=== PATIENT | female | born 1930 | race Caucasian/White ===

== ENCOUNTER 2019-01-14 06:46 | Observation (INO) | payer MEDICARE ==
[~2019-01-14] VITALS: Ht 167.6 cm; Wt 56.2 kg
[2019-01-14] MEDS ORDERED: normal saline 1000ML IV soln IVB ONE (07:15)
[2019-01-14] MEDS ORDERED: LORazepam 2 mg/ml vial IV ONE (07:15)
[2019-01-14 07:45] LABS: BASOPHILS % (AUTO) 0.7 % (0-1); EOSINOPHILS # (AUTO) 0.1 X10'3 (0-0.9); EOSINOPHILS % (AUTO) 0.8 % (0-6); HEMATOCRIT 38.8 % (35.0-45.0); HEMOGLOBIN 13.2 g/dl (12.0-16.0); LYMPHOCYTES # (AUTO) 1.3 X10'3 (1.1-4.8); LYMPHOCYTES % (AUTO) 18.3 % (21-51); MEAN CORPUSCULAR HEMOGLOBIN 29.6 PG (27.0-31.0); MEAN CORPUSCULAR HGB CONC 34.1 g/dL (33.0-36.5); MEAN CORPUSCULAR VOLUME 86.7 FL (78-98); MEAN PLATELET VOLUME 8.7 FL (7.4-10.4); MONOCYTES % (AUTO) 14.3 % (2-12); NEUTROPHILS # (AUTO) 4.8 X10'3 (1.8-7.7); NEUTROPHILS % (AUTO) 65.9 % (42-75); PLATELET COUNT 167 X10'3 (140-440); RED BLOOD COUNT 4.47 X10'6 (4.20-5.60); WHITE BLOOD COUNT 7.2 X10'3 (4.5-11.0)
[2019-01-14 08:07] LABS: ALANINE AMINOTRANSFERASE 16 U/L (12-78); ALBUMIN 2.9 G/DL (3.4-5.0); ALBUMIN/GLOBULIN RATIO 0.6 (1.1-1.5); ALKALINE PHOSPHATASE 78 IU/L (46-116); ANION GAP 5 (8-16); ASPARTATE AMINO TRANSFERASE 19 U/L (10-37); BILIRUBIN,TOTAL 0.6 MG/DL (0.1-1.0); BLOOD UREA NITROGEN 18 MG/DL (7-18); BUN/CREATININE RATIO 25.4 (6.6-38.0); CALCIUM 8.7 MG/DL (8.5-10.1); CHLORIDE 105 MMOL/L (99-107); CREATININE 0.71 MG/DL (0.40-0.90); GLUCOSE 106 MG/DL (70-104); POTASSIUM 3.9 MMOL/L (3.5-5.1); SODIUM 141 MMOL/L (135-145); TOTAL CARBON DIOXIDE 30.9 MMOL/L (24-32); eGFR 78 ML/MIN
[2019-01-14 08:16] LABS: LIPASE 106 U/L (73-393)
--- NOTE | 2019-01-14 08:40 | NUR ---
Volunteer reported to me the pt began experienced increasing chest pain. Assessed pt, who is unable to rate her pain but describes it as pressure and worsening with inspiration. Reported findings to Dr. Mcdermott, repeat ekg being performed at this time.
[2019-01-14 08:48] LABS: CLARITY,URINE SLIGHTLY CLOUDY (Clear); COLOR,URINE YELLOW (Yellow); GLUCOSE, URINE NEGATIVE (Neg); KETONES,URINE NEGATIVE (Neg); LEUKOCYTE ESTERASE ,URINE SMALL (Neg); NITRITES, URINE POSITIVE (Neg); OCCULT BLOOD,URINE MODERATE (Neg); PROTEIN,URINE NEGATIVE (Neg); UROBILINOGEN,URINE 0.2 E.U/dL (0.2-1.0)
[2019-01-14 08:53] LABS: UA COLLECTION TYPE STRAIGHT CATH
[2019-01-14 08:54] LABS: BACTERIA,URINE 4+ /HPF (Neg)
[2019-01-14 08:55] LABS: SQUAMOUS EPITHELIAL CELL,UR FEW /LPF (FEW); WBC CLUMPS,URINE MODERATE /HPF (NEGATIVE)
[2019-01-14 08:56] LABS: RBC,URINE 0-2 /HPF (0-2); WBC,URINE 50-100 /HPF (0-4)
[2019-01-14] MEDS ORDERED: nitroGLYCERIN 0.2mg/hour patch TD ONE (09:10)
[2019-01-14] MEDS ORDERED: aspirin 81mg tab.chew PO ONE (09:10)
[2019-01-14] MEDS ORDERED: morphine 4 MG/ML inj SYRINge IV PRN (09:20)
[2019-01-14] MEDS ORDERED: ondansetron/PF 4mg/2ml inj IV PRN (09:20)
[2019-01-14] MEDS ORDERED: mag hydrox/Alum hydrox/simeth 30ml oral suspension PO PRN (09:20)
[2019-01-14] MEDS ORDERED: magnesium hydroxide 30ml (MOM) UD suspension PO PRN (09:20)
[2019-01-14] MEDS ORDERED: acetaminophen 325mg tablet PO PRN ×2 (09:20→17:55)
[2019-01-14] MEDS ORDERED: OMEP-50 PO (10:39)
[2019-01-14] MEDS ORDERED: METO25TA6 PO (10:39)
[2019-01-14] MEDS ORDERED: VIT1CAPS46 PO (10:40)
[2019-01-14] MEDS ORDERED: LEVO75TA7 PO (10:40)
[2019-01-14] MEDS ORDERED: AMLO5TAB PO (10:40)
[2019-01-14] MEDS ORDERED: SOTA80TA PO (10:40)
[2019-01-14] MEDS ORDERED: APIX5TAB3 PO (10:40)
[2019-01-14] MEDS ORDERED: MIRT7.5T11 PO (10:40)
[2019-01-14] MEDS ORDERED: CLON0.1T20 PO (10:40)
[2019-01-14] MEDS ORDERED: TIOT18CA3 INH (10:40)
[2019-01-14] MEDS ORDERED: ASPI-257 PO (10:40)
[2019-01-14] MEDS ORDERED: LOSA100T57 PO (10:40)
[2019-01-14] MEDS ORDERED: CefTRIAXone/D5W-Rocephin 1gm 50 ML IV ONE (11:00)
[2019-01-14] MEDS: sotalol 80mg tablet PO NR ×2 (11:44→11:51)
--- NOTE | 2019-01-14 11:46 | NUR ---
Patient in room ED 10. I have received report from TEREZA Marin and had the opportunity to ask questions and assume patient care.
[2019-01-14 12:15] VITALS: BP 119/71
[2019-01-14 15:00] VITALS: BP 116/72
--- NOTE | 2019-01-14 17:47 | NUR ---
PAGER ID: [phone] MESSAGE: Patient Angie Liao in room 3017B is requesting a Tylenol for severe headache pain. [facility] Eugenia [id number]
--- NOTE | 2019-01-14 18:25 | NUR ---
Patient in room PCU 3017. I have received report from Eugenia STARKS and had the opportunity to ask questions and assume patient care.
--- NOTE | 2019-01-14 18:36 | NUR ---
Problems reprioritized. Patient report given, questions answered & plan of care reviewed with TEREZA Johnson.
[2019-01-14 19:00] VITALS: BP 128/75
[2019-01-14] MEDS: sotalol 80mg tablet PO SCH (19:07)
[2019-01-14] MEDS: apixaban 5mg tablet PO SCH (19:08)
[2019-01-14] MEDS ORDERED: bumetanide 1mg tablet PO SCH (20:00)
[2019-01-14 23:00] VITALS: BP 106/68
[2019-01-15] VITALS (7 sets, daily range): BP systolic 102–121; BP diastolic 54–72
[2019-01-15 06:02] LABS: BASOPHILS % (AUTO) 0.5 % (0-1); EOSINOPHILS # (AUTO) 0.1 X10'3 (0-0.9); EOSINOPHILS % (AUTO) 1.4 % (0-6); HEMATOCRIT 38.8 % (35.0-45.0); HEMOGLOBIN 12.6 g/dl (12.0-16.0); LYMPHOCYTES # (AUTO) 1.5 X10'3 (1.1-4.8); LYMPHOCYTES % (AUTO) 22.5 % (21-51); MEAN CORPUSCULAR HEMOGLOBIN 28.6 PG (27.0-31.0); MEAN CORPUSCULAR HGB CONC 32.5 g/dL (33.0-36.5); MEAN CORPUSCULAR VOLUME 87.9 FL (78-98); MEAN PLATELET VOLUME 9.3 FL (7.4-10.4); MONOCYTES # (AUTO) 0.8 X10'3 (0-0.9); MONOCYTES % (AUTO) 12.2 % (2-12); NEUTROPHILS # (AUTO) 4.2 X10'3 (1.8-7.7); NEUTROPHILS % (AUTO) 63.4 % (42-75); PLATELET COUNT 161 X10'3 (140-440); RED BLOOD COUNT 4.41 X10'6 (4.20-5.60); RED CELL DISTRIBUTION WIDTH 13.9 % (11.5-14.5); WHITE BLOOD COUNT 6.6 X10'3 (4.5-11.0)
--- NOTE | 2019-01-15 06:10 | NUR ---
Problems reprioritized. Patient report given, questions answered & plan of care reviewed with Tierra STARKS.
[2019-01-15 06:16] LABS: ALBUMIN 2.7 G/DL (3.4-5.0); ANION GAP 7 (8-16); BLOOD UREA NITROGEN 16 MG/DL (7-18); BUN/CREATININE RATIO 26.7 (6.6-38.0); CALCIUM 8.7 MG/DL (8.5-10.1); CHLORIDE 105 MMOL/L (99-107); GLUCOSE 93 MG/DL (70-104); POTASSIUM 3.8 MMOL/L (3.5-5.1); SODIUM 140 MMOL/L (135-145); TOTAL CARBON DIOXIDE 28.5 MMOL/L (24-32); eGFR > 90 ML/MIN
--- NOTE | 2019-01-15 06:30 | NUR ---
Patient in room PCU 3017. I have received report from TEREZA Don and had the opportunity to ask questions and assume patient care.
[2019-01-15] MEDS: sotalol 80mg tablet PO SCH ×2 (07:37→20:58)
[2019-01-15] MEDS: apixaban 5mg tablet PO SCH ×2 (07:37→20:55)
[2019-01-15] MEDS: CefTRIAXone/D5W-Rocephin 1gm 50 ML IV SCH (07:38)
[2019-01-15] MEDS ORDERED: furosemide 20 MG/2 ML vial IV ONE (16:55)
--- NOTE | 2019-01-15 18:05 | NUR ---
Patient in room PCU 3017. I have received report from Tierra STARKS and had the opportunity to ask questions and assume patient care.
[2019-01-15] MEDS ORDERED: iohexol 300mg/ml 100ml inj. ONE (18:13)
--- NOTE | 2019-01-15 18:30 | NUR ---
Patient in room PCU 3017. I have received report from and had the opportunity to ask questions and assume patient care with sarai watts.
--- NOTE | 2019-01-15 18:39 | NUR ---
Problems reprioritized. Patient report given, questions answered & plan of care reviewed with TEREZA Lacey.
[2019-01-16 03:00] VITALS: BP 133/68
[2019-01-16 05:37] LABS: BASOPHILS % (AUTO) 0.3 % (0-1); EOSINOPHILS # (AUTO) 0.1 X10'3 (0-0.9); EOSINOPHILS % (AUTO) 1.6 % (0-6); HEMATOCRIT 37.3 % (35.0-45.0); HEMOGLOBIN 12.4 g/dl (12.0-16.0); LYMPHOCYTES % (AUTO) 18.3 % (21-51); MEAN CORPUSCULAR HEMOGLOBIN 29.1 PG (27.0-31.0); MEAN CORPUSCULAR HGB CONC 33.2 g/dL (33.0-36.5); MEAN CORPUSCULAR VOLUME 87.6 FL (78-98); MONOCYTES # (AUTO) 0.8 X10'3 (0-0.9); MONOCYTES % (AUTO) 15.2 % (2-12); NEUTROPHILS # (AUTO) 3.4 X10'3 (1.8-7.7); NEUTROPHILS % (AUTO) 64.6 % (42-75); PLATELET COUNT 181 X10'3 (140-440); RED BLOOD COUNT 4.26 X10'6 (4.20-5.60); WHITE BLOOD COUNT 5.3 X10'3 (4.5-11.0)
[2019-01-16 05:45] LABS: ALBUMIN 2.7 G/DL (3.4-5.0); ANION GAP 5 (8-16); BLOOD UREA NITROGEN 19 MG/DL (7-18); CALCIUM 8.9 MG/DL (8.5-10.1); CHLORIDE 105 MMOL/L (99-107); CREATININE 0.73 MG/DL (0.40-0.90); GLUCOSE 90 MG/DL (70-104); POTASSIUM 3.9 MMOL/L (3.5-5.1); SODIUM 143 MMOL/L (135-145); TOTAL CARBON DIOXIDE 33.5 MMOL/L (24-32); eGFR 76 ML/MIN
[2019-01-16 06:00] VITALS: BP 127/74
--- NOTE | 2019-01-16 06:00 | NUR ---
Patient in room PCU 3017. I have received report from Toshia STARKS and had the opportunity to ask questions and assume patient care.
--- NOTE | 2019-01-16 06:00 | NUR ---
Patient in room PCU 3017. I have received report from Cintia STARKS and had the opportunity to ask questions and assume patient care.
--- NOTE | 2019-01-16 06:34 | NUR ---
Problems reprioritized. Patient report given, questions answered & plan of care reviewed with Mari STARKS.
--- NOTE | 2019-01-16 06:34 | NUR ---
[place] documentation: I have reviewed and agree with all interventions, assessments performed and documented by Janie STARKS .
--- NOTE | 2019-01-16 06:37 | NUR ---
Problems reprioritized. Patient report given, questions answered & plan of care reviewed with Mari STARKS.
[2019-01-16] MEDS ORDERED: furosemide 20 MG/2 ML vial IV SCH (08:00)
[2019-01-16] MEDS: sotalol 80mg tablet PO SCH (08:26)
[2019-01-16] MEDS: apixaban 5mg tablet PO SCH (08:26)
[2019-01-16] MEDS: CefTRIAXone/D5W-Rocephin 1gm 50 ML IV SCH (08:27)
--- NOTE | 2019-01-16 09:28 | NUR ---
PAGER ID: [phone] MESSAGE: [id number] Mari [id number] Kennedy about patient going back into afib, rate 70/80s. Also inquired about thyroid and acid reflux medication. Pt is c/o visual distortion as well.
[2019-01-16] MEDS ORDERED: levoFLOXACIN-Levaquin 500mg/D5 100 ML IV ONE (10:15)
[2019-01-16] MEDS ORDERED: levoTHYROXINE 75mcg tablet PO SCH (10:15)
[2019-01-16 11:00] VITALS: BP 113/60
[2019-01-16] MEDS ORDERED: LEVO500T2 PO (12:22)
--- NOTE | 2019-01-16 14:24 | NUR ---
PAGER ID: [phone] MESSAGE: [id number] Yanni. Pt's pharmacy called and wanted to notify MD that there is a potential for QT elongation due to an interaction between levaquin and sotalol. pharmacy is holding medication until confirmed. Please advise, Mari [phone]
[2019-01-16 15:00] VITALS: BP 136/69
--- NOTE | 2019-01-16 15:10 | NUR ---
PAGER ID: [phone] MESSAGE: Gorge [id number]. Pt is ready to be discharged , need confirmation about the discharge medication for teodoro. They have med on hold until confirmation, Mari [phone]
--- NOTE | 2019-01-16 16:14 | NUR ---
PAGER ID: [phone] MESSAGE: [id number] Yanni. Pt awaiting discharge, pharmacy will not fill levaquin Rx until confirmed by MD. Guerra [id number] / [phone]
[2019-01-16] MEDS ORDERED: CEFD300C3 PO (16:54)
[2019-01-16] MEDS ORDERED: LINE600T36 PO (16:56)
--- NOTE | 2019-01-16 17:54 | NUR ---
Pt dischargedat 1740 and was wheeled down by staff. Pt education and discharged instructions were reviewed before signing. Belongings were sent with patient, telemetry and PIV were removed. Pt Rx were called in to pharmacy, and she left via private vehicle with family.
[2019-01-16] MEDS ORDERED: lactobacillus rhamnosus 10,000 MMU CELLS/CAPSULE PO SCH (20:00)
[2019-01-16] MEDS ORDERED: mirtazapine 15mg tablet PO SCH (21:00)
[2019-01-17] MEDS ORDERED: pantoprazole 40mg Tablet.DR PO SCH (07:30)
[2019-01-17] MEDS ORDERED: levoFLOXACIN-Levaquin 500mg/D5 100 ML IV SCH (08:00)
== END 2019-01-16 17:45 | disposition home or self-care (01) ==
LOC: ER 06:47 → ED HOLD 09:20 → EDBEDREQ 10:54 → PCU 3S 12:08
PROVIDERS: ADMIT Family Medicine; ATTEND Family Medicine
DX: R07.89 Other chest pain (principal); F41.9 Anxiety disorder, unspecified; N39.0 Urinary tract infection, site not specified; I10 Essential (primary) hypertension; M06.9 Rheumatoid arthritis, unspecified; Z86.79 Personal history of other diseases of the circulatory system; J44.9 Chronic obstructive pulmonary disease, unspecified; Z87.39 Personal history of other diseases of the musculoskeletal system and connective tissue; Z86.59 Personal history of other mental and behavioral disorders; Z87.891 Personal history of nicotine dependence; H35.30 Unspecified macular degeneration; R01.1 Cardiac murmur, unspecified; Z98.890 Other specified postprocedural states; I95.9 Hypotension, unspecified; R00.0 Tachycardia, unspecified; I48.91 Unspecified atrial fibrillation; E03.9 Hypothyroidism, unspecified; E43 Unspecified severe protein-calorie malnutrition
CPT/HCPCS: 36415; 71045; 71260; 80048; 80053; 81001; 83690; 83880; 84443; 84484; 85025; 87070; 87077; 87088; 87186; 93005; 96365; 96366; 96375; 96376; 99284; G0378; J0696; J1940; J1956; J2060; J2270; Q9967

== ENCOUNTER 2019-01-31 05:46 | Day surgery (SDC) | payer MEDICARE ==
[2019-01-30 11:22] LABS: BASOPHILS % (AUTO) 0.3 % (0-1); EOSINOPHILS # (AUTO) 0.1 X10'3 (0-0.9); HEMATOCRIT 39.2 % (35.0-45.0); HEMOGLOBIN 12.7 g/dl (12.0-16.0); LYMPHOCYTES % (AUTO) 16.9 % (21-51); MEAN CORPUSCULAR HEMOGLOBIN 28.4 PG (27.0-31.0); MEAN CORPUSCULAR HGB CONC 32.5 g/dL (33.0-36.5); MEAN CORPUSCULAR VOLUME 87.6 FL (78-98); MEAN PLATELET VOLUME 8.9 FL (7.4-10.4); MONOCYTES % (AUTO) 17.1 % (2-12); NEUTROPHILS # (AUTO) 3.8 X10'3 (1.8-7.7); NEUTROPHILS % (AUTO) 64.7 % (42-75); PLATELET COUNT 136 X10'3 (140-440); RED BLOOD COUNT 4.48 X10'6 (4.20-5.60); RED CELL DISTRIBUTION WIDTH 14.1 % (11.5-14.5); WHITE BLOOD COUNT 5.9 X10'3 (4.5-11.0)
[2019-01-30 11:29] LABS: ALBUMIN 2.8 G/DL (3.4-5.0); ANION GAP 5 (8-16); BLOOD UREA NITROGEN 15 MG/DL (7-18); BUN/CREATININE RATIO 26.3 (6.6-38.0); CALCIUM 8.9 MG/DL (8.5-10.1); CHLORIDE 102 MMOL/L (99-107); CREATININE 0.57 MG/DL (0.40-0.90); GLUCOSE 112 MG/DL (70-104); SODIUM 140 MMOL/L (135-145); TOTAL CARBON DIOXIDE 32.7 MMOL/L (24-32); eGFR > 90 ML/MIN
[2019-01-30 11:30] LABS: PARTIAL THROMBOPLASTIN TIME 35 SECONDS (22-32); PROTHROMBIN TIME 10.5 SECONDS (9.0-12.0)
[2019-01-30 11:46] LABS: ANISOCYTOSIS 1+; LARGE PLATELETS FEW; PLATELET ESTIMATE DECREASED
[~2019-01-31] VITALS: Ht 167.6 cm; Wt 56.2 kg
[2019-01-31] VITALS (16 sets, daily range): BP systolic 123–165; BP diastolic 55–85
[~2019-01-31 05:46] MED LIST: AMLO5TAB PO; APIX5TAB3 PO; ASPI-257 PO; CLON0.1T20 PO; LEVO75TA7 PO; LOSA100T57 PO; MIRT7.5T11 PO; OMEP-50 PO; SOTA80TA PO; TIOT18CA3 INH; VIT1CAPS46 PO
[2019-01-31] MEDS ORDERED: normal saline 1000ml 1,000 ML IV SCH (06:30)
[2019-01-31] MEDS ORDERED: diphenhydrAMINE 25mg capsule PO PRN (06:30)
[2019-01-31] MEDS ORDERED: LORazepam 0.5 MG tablet PO PRN (06:30)
[2019-01-31] MEDS ORDERED: ACET-812 PO (06:49)
[2019-01-31] MEDS ORDERED: METO50TA17 PO (06:49)
[2019-01-31] MEDS ORDERED: midazolam 2 mg/2 ml injection ONE (07:33)
[2019-01-31] MEDS ORDERED: nitroGLYCERIN-Tridil 50MG/D5W 250 ML IV ONE (07:33)
[2019-01-31] MEDS ORDERED: fentaNYL/PF 50MCG/1 ML 2ML syringe ONE (07:33)
[2019-01-31] MEDS ORDERED: LIDOcaine 1% (10mg/ml)w/preservative injection 20ml MDV ONE (07:33)
[2019-01-31] MEDS ORDERED: iohexol 350 MG/ML 50ML vial IV ONE (07:33)
[2019-01-31] MEDS ORDERED: heparin 1,000unit/ml 10ml vial 10 ML ONE (07:33)
[2019-01-31] MEDS ORDERED: iohexol 350MG/ML 100ml bottle IV ONE (07:34)
[2019-01-31] MEDS ORDERED: LIDOcaine/PRILOcaine 5gm cream TP ONE (07:45)
[2019-01-31] MEDS ORDERED: verapamil 2.5 mg/ml inj IV ONE (08:04)
[2019-01-31 10:41] LABS: ISTAT Hct MIX 37 %PCV (35-48); ISTAT O2 SATURATION MIX VENOUS 55 % (60-80); ISTAT SOURCE MIX
[2019-01-31 10:41] LABS: ISTAT HGB ART 12.6 g/dl (12.0-16.0); ISTAT Hct ART 37 %PCV (35-48); ISTAT O2 SATURATION ARTERIAL 87 % (95-98); ISTAT SOURCE ART
== END 2019-01-31 14:46 | disposition home or self-care (01) ==
LOC: SSTAY O 05:46
PROVIDERS: ATTEND Internal Medicine Cardiovascular Disease
DX: I25.10 Atherosclerotic heart disease of native coronary artery without angina pectoris (principal); J44.9 Chronic obstructive pulmonary disease, unspecified; I35.0 Nonrheumatic aortic (valve) stenosis; I48.0 Paroxysmal atrial fibrillation; I10 Essential (primary) hypertension; E78.5 Hyperlipidemia, unspecified; Z87.891 Personal history of nicotine dependence
CPT/HCPCS: 36415; 80048; 82803; 85014; 85025; 85610; 85730; 93005; 93460; 99152; 99153; A6257; J1644; J2001; J2250; J3010; J7030; Q0163; Q9967; A4620; C1769; J3490

== ENCOUNTER 2019-02-16 09:42 | Emergency (ER) | payer MEDICARE ==
[~2019-02-16] VITALS: Ht 167.6 cm; Wt 49.0 kg
[~2019-02-16 09:42] MED LIST changes: +ACET-812 PO; -ASPI-257 PO; +METO50TA17 PO
[2019-02-16 09:48] VITALS: BP 141/60
[2019-02-16] MEDS ORDERED: AZIT-72 PO (10:54)
== END 2019-02-16 11:12 | disposition home or self-care (01) ==
LOC: ER 09:43
DX: J20.9 Acute bronchitis, unspecified (principal); I10 Essential (primary) hypertension; J44.9 Chronic obstructive pulmonary disease, unspecified; M06.9 Rheumatoid arthritis, unspecified; Z90.49 Acquired absence of other specified parts of digestive tract; Z98.890 Other specified postprocedural states; Z99.81 Dependence on supplemental oxygen; Z87.891 Personal history of nicotine dependence; Z88.0 Allergy status to penicillin; Z88.2 Allergy status to sulfonamides; Z88.1 Allergy status to other antibiotic agents; Z88.8 Allergy status to other drugs, medicaments and biological substances; Z79.899 Other long term (current) drug therapy
CPT/HCPCS: 71046; 99283

== ENCOUNTER → 2019-03-09 | Emergency (ER) | payer MEDICARE ==
[~2019-03-09] VITALS: Ht 167.6 cm; Wt 47.9 kg
[~2019-03-09] MED LIST changes: +AZIT-72 PO; +HYDR-3965 PO; +HYDROcodone/acetaminophen 5mg/325mg tablet PO ONE; +ibuprofen tablet 400 MG TABLET PO ONE
[2019-03-09 06:04] VITALS: BP 144/81
== END | disposition home or self-care (01) ==
LOC: ER 05:01
DX: M54.41 Lumbago with sciatica, right side (principal); I10 Essential (primary) hypertension; J44.9 Chronic obstructive pulmonary disease, unspecified; M06.9 Rheumatoid arthritis, unspecified; Z90.49 Acquired absence of other specified parts of digestive tract; Z98.890 Other specified postprocedural states; Z88.0 Allergy status to penicillin; Z88.2 Allergy status to sulfonamides; Z88.1 Allergy status to other antibiotic agents; Z88.8 Allergy status to other drugs, medicaments and biological substances; Z79.899 Other long term (current) drug therapy
CPT/HCPCS: 99283

== ENCOUNTER 2019-03-20 23:33 | Emergency (ER) | payer MEDICARE ==
[~2019-03-20] VITALS: Ht 165.1 cm; Wt 55.9 kg
[~2019-03-20 23:33] MED LIST changes: -AZIT-72 PO; -HYDROcodone/acetaminophen 5mg/325mg tablet PO ONE; -ibuprofen tablet 400 MG TABLET PO ONE
[2019-03-20 23:53] LABS: BASOPHILS # (AUTO) 0.1 X10'3 (0-0.2); BASOPHILS % (AUTO) 1.5 % (0-1); EOSINOPHILS # (AUTO) 0.1 X10'3 (0-0.9); EOSINOPHILS % (AUTO) 0.7 % (0-6); HEMATOCRIT 41.3 % (35.0-45.0); HEMOGLOBIN 13.6 g/dl (12.0-16.0); LYMPHOCYTES # (AUTO) 1.3 X10'3 (1.1-4.8); LYMPHOCYTES % (AUTO) 14.9 % (21-51); MEAN CORPUSCULAR HGB CONC 32.9 g/dL (33.0-36.5); MEAN CORPUSCULAR VOLUME 88.1 FL (78-98); MEAN PLATELET VOLUME 9.3 FL (7.4-10.4); MONOCYTES # (AUTO) 0.9 X10'3 (0-0.9); MONOCYTES % (AUTO) 10.7 % (2-12); NEUTROPHILS # (AUTO) 6.1 X10'3 (1.8-7.7); NEUTROPHILS % (AUTO) 72.2 % (42-75); PLATELET COUNT 150 X10'3 (140-440); RED BLOOD COUNT 4.69 X10'6 (4.20-5.60); RED CELL DISTRIBUTION WIDTH 14.5 % (11.5-14.5); WHITE BLOOD COUNT 8.4 X10'3 (4.5-11.0)
[2019-03-21 00:06] LABS: ALANINE AMINOTRANSFERASE 23 U/L (12-78); ALBUMIN/GLOBULIN RATIO 0.5 (1.1-1.5); ALKALINE PHOSPHATASE 94 IU/L (46-116); ANION GAP 3 (8-16); ASPARTATE AMINO TRANSFERASE 27 U/L (10-37); BILIRUBIN,TOTAL 0.7 MG/DL (0.1-1.0); BLOOD UREA NITROGEN 19 MG/DL (7-18); BUN/CREATININE RATIO 27.1 (6.6-38.0); CHLORIDE 101 MMOL/L (99-107); GLUCOSE 119 MG/DL (70-104); INR 1.1 INR; PARTIAL THROMBOPLASTIN TIME 37 SECONDS (22-32); POTASSIUM 4.2 MMOL/L (3.5-5.1); SODIUM 136 MMOL/L (135-145); TOTAL CARBON DIOXIDE 31.7 MMOL/L (24-32); TOTAL PROTEIN 8.6 G/DL (6.4-8.2); eGFR 79 ML/MIN
--- NOTE | 2019-03-21 00:14 | NUR ---
MD MADE AWARE THAT TYPE AND SCREEN NOT NEEDED R/T PT TRANSFERRING TO [facility], SO CANCELLED.
[2019-03-21] MEDS ORDERED: FLUT1BLS3 (00:24)
[2019-03-21] MEDS ORDERED: ALBU8.5H8 INH (00:25)
[2019-03-21 00:30] LABS: CLARITY,URINE CLEAR (Clear); COLOR,URINE YELLOW (Yellow); GLUCOSE, URINE NEGATIVE (Neg); KETONES,URINE NEGATIVE (Neg); LEUKOCYTE ESTERASE ,URINE NEGATIVE (Neg); NITRITES, URINE NEGATIVE (Neg); OCCULT BLOOD,URINE SMALL (Neg); PROTEIN,URINE 30 mg/dl (Neg); UROBILINOGEN,URINE 0.2 E.U/dL (0.2-1.0)
[2019-03-21 00:33] LABS: UA COLLECTION TYPE FOLEY CATH
[2019-03-21 00:35] LABS: BACTERIA,URINE FEW /HPF (Neg); MUCUS STRANDS NONE SEEN /LPF (Neg); SQUAMOUS EPITHELIAL CELL,UR FEW /LPF (FEW); WBC,URINE 0-4 /HPF (0-4)
[2019-03-21 00:57] VITALS: BP 162/73
[2019-03-21] MEDS ORDERED: fentaNYL/PF 50MCG/1 ML 2ML syringe IV STA (01:22)
--- NOTE | 2019-03-21 02:39 | NUR ---
SBAR TO EMS
== END 2019-03-21 02:00 | disposition short-term general hospital (02) ==
LOC: ER 23:34
DX: S72.091A Other fracture of head and neck of right femur, initial encounter for closed fracture (principal); I48.91 Unspecified atrial fibrillation; J44.9 Chronic obstructive pulmonary disease, unspecified; I35.0 Nonrheumatic aortic (valve) stenosis; I10 Essential (primary) hypertension; M06.9 Rheumatoid arthritis, unspecified; Z90.49 Acquired absence of other specified parts of digestive tract; Z87.891 Personal history of nicotine dependence; Z88.0 Allergy status to penicillin; Z99.81 Dependence on supplemental oxygen; Z88.2 Allergy status to sulfonamides; Z79.01 Long term (current) use of anticoagulants; Z88.1 Allergy status to other antibiotic agents; Z79.899 Other long term (current) drug therapy; W18.49XA Other slipping, tripping and stumbling without falling, initial encounter; Y93.89 Activity, other specified; Y92.89 Other specified places as the place of occurrence of the external cause; Y99.9 Unspecified external cause status
CPT/HCPCS: 36415; 51702; 71045; 73502; 80053; 81001; 85025; 85610; 85730; 93005; 96374; 99285; J3010

== ENCOUNTER 2019-06-07 09:00 | Emergency (ER) | payer MEDICARE ==
[~2019-06-07] VITALS: Ht 167.6 cm; Wt 52.7 kg
[~2019-06-07 09:00] MED LIST changes: +ALBU8.5H8 INH; +FLUT1BLS3; -HYDR-3965 PO; +LIDOcaine 1% w/EPI 1:100,000 30ml vial (MDV) ONE; -METO50TA17 PO
[2019-06-07 09:05] VITALS: BP 136/59
[2019-06-07] MEDS ORDERED: ketorolac trometh inj. 60 MG/2 ML VIAL IM ONE (09:40)
[2019-06-07] MEDS ORDERED: traMADol 50MG tablet PO ONE (09:40)
[2019-06-07] MEDS ORDERED: acetaminophen 325mg tablet PO ONE (09:40)
[2019-06-07] MEDS ORDERED: TRAM50TA2 PO (10:00)
[2019-06-07] MEDS ORDERED: LIDO700A32 TP (10:00)
[2019-06-07] MEDS ORDERED: ACET-2615 PO (10:00)
--- NOTE | 2019-06-07 10:17 | NUR ---
Pt ambulates to the bathroom with walker and daughter to assist. Pt now back in room waiting for dc paperwork.
== END 2019-06-07 10:21 | disposition home or self-care (01) ==
LOC: ER 09:01
DX: M54.5 Low back pain (principal); I35.0 Nonrheumatic aortic (valve) stenosis; I48.91 Unspecified atrial fibrillation; I10 Essential (primary) hypertension; J44.9 Chronic obstructive pulmonary disease, unspecified; M06.9 Rheumatoid arthritis, unspecified; F41.9 Anxiety disorder, unspecified; Z90.49 Acquired absence of other specified parts of digestive tract; Z98.890 Other specified postprocedural states; Z88.0 Allergy status to penicillin; Z88.2 Allergy status to sulfonamides; Z88.1 Allergy status to other antibiotic agents; Z88.8 Allergy status to other drugs, medicaments and biological substances; Z79.899 Other long term (current) drug therapy
CPT/HCPCS: 20552; 96372; 99284; J1885

== ENCOUNTER 2019-08-13 09:40 | Inpatient (IN) | payer MEDICARE ==
[~2019-08-13] VITALS: Ht 165.1 cm; Wt 58.2 kg
[2019-08-13] VITALS (9 sets, daily range): BP systolic 72–132; BP diastolic 49–65
[~2019-08-13 09:40] MED LIST changes: +LIDO700A32 TP; -LIDOcaine 1% w/EPI 1:100,000 30ml vial (MDV) ONE; +heparin, porcine-25,000 units/D5-250ml premix IV ONE; +nitroGLYCERIN 0.4mg SUBLingual tab SL ONE
[2019-08-13] MEDS ORDERED: morphine 4 MG/ML inj SYRINge IV ONE (09:50)
[2019-08-13] MEDS ORDERED: nitroGLYCERIN 0.4mg SUBLingual tab SL PRN (09:50)
[2019-08-13] MEDS ORDERED: ondansetron/PF 4mg/2ml inj IV ONE (09:50)
[2019-08-13] MEDS ORDERED: iohexol 350 MG/1 ML 200ml bottle ONE (09:56)
[2019-08-13] MEDS ORDERED: iohexol 350 MG/ML 50ML vial IV ONE ×2 (09:56→12:42)
[2019-08-13] MEDS ORDERED: LIDOcaine 1% (10mg/ml)w/preservative injection 20ml MDV ONE ×2 (09:56→12:42)
--- NOTE | 2019-08-13 10:05 | NUR ---
DR HEREDIA AT BEDSIDE NOW FOR EVALAUTION NOW
[2019-08-13 10:08] LABS: BASOPHILS # (AUTO) 0.1 X10'3 (0-0.2); BASOPHILS % (AUTO) 0.8 % (0-1); EOSINOPHILS % (AUTO) 0.4 % (0-6); HEMATOCRIT 38.4 % (35.0-45.0); HEMOGLOBIN 12.7 g/dl (12.0-16.0); LYMPHOCYTES # (AUTO) 0.9 X10'3 (1.1-4.8); MEAN CORPUSCULAR HGB CONC 32.9 g/dL (33.0-36.5); MEAN PLATELET VOLUME 8.6 FL (7.4-10.4); MONOCYTES # (AUTO) 1.1 X10'3 (0-0.9); NEUTROPHILS # (AUTO) 7.9 X10'3 (1.8-7.7); NEUTROPHILS % (AUTO) 78.8 % (42-75); PLATELET COUNT 223 X10'3 (140-440); RED BLOOD COUNT 4.52 X10'6 (4.20-5.60); RED CELL DISTRIBUTION WIDTH 18.4 % (11.5-14.5); WHITE BLOOD COUNT 10.1 X10'3 (4.5-11.0)
[2019-08-13] MEDS ORDERED: enoxaparin 50mg/0.5ml (from 3ml vial) syringe SUBCUT ONE (10:10)
[2019-08-13 10:26] LABS: ALANINE AMINOTRANSFERASE 18 U/L (12-78); ALBUMIN 2.5 G/DL (3.4-5.0); ALBUMIN/GLOBULIN RATIO 0.4 (1.1-1.5); ALKALINE PHOSPHATASE 92 IU/L (46-116); ANION GAP 4 (8-16); ASPARTATE AMINO TRANSFERASE 17 U/L (10-37); BILIRUBIN,TOTAL 0.8 MG/DL (0.1-1.0); BLOOD UREA NITROGEN 19 MG/DL (7-18); CALCIUM 8.4 MG/DL (8.5-10.1); CHLORIDE 104 MMOL/L (99-107); CREATININE 0.76 MG/DL (0.40-0.90); GLUCOSE 135 MG/DL (70-104); SODIUM 139 MMOL/L (135-145); TOTAL CARBON DIOXIDE 31.1 MMOL/L (24-32); TOTAL PROTEIN 8.2 G/DL (6.4-8.2); eGFR 72 ML/MIN
[2019-08-13 10:35] LABS: MAGNESIUM 1.7 MG/DL (1.5-2.4)
[2019-08-13] MEDS ORDERED: acetaminophen 325mg tablet PO PRN ×2 (11:00)
[2019-08-13] MEDS ORDERED: potassium Cl 20 mEq SR tablet PO PRN ×2 (11:00)
[2019-08-13] MEDS ORDERED: magnesium hydroxide 30ml (MOM) UD suspension PO PRN (11:00)
[2019-08-13] MEDS ORDERED: mag hydrox/Alum hydrox/simeth 30ml oral suspension PO PRN (11:00)
[2019-08-13] MEDS: aspirin 81mg tablet.DR PO SCH (11:00)
[2019-08-13] MEDS ORDERED: magnesium 2GM in 50ml NS 50 ML IV PRN (11:00)
[2019-08-13] MEDS ORDERED: magnesium 4gm in 100ml NS 100 ML IV PRN (11:00)
[2019-08-13] MEDS ORDERED: potassium CL 10mEq/100ml bag 100 ML IV PRN ×2 (11:00)
[2019-08-13] MEDS ORDERED: magnesium Cl slow-release 64mg tablet PO PRN (11:00)
[2019-08-13] MEDS ORDERED: ondansetron/PF 4mg/2ml inj IV PRN (11:00)
--- NOTE | 2019-08-13 12:00 | NUR ---
received report from mac Marin
[2019-08-13 12:41] LABS: PARTIAL THROMBOPLASTIN TIME 34 SECONDS (22-32)
[2019-08-13] MEDS ORDERED: iohexol 350MG/ML 100ml bottle IV ONE (12:42)
--- NOTE | 2019-08-13 13:09 | NUR ---
PT ARRIVED ON FLOOR AT THIS TIME
[2019-08-13] MEDS: nitroGLYCERIN 0.4mg SUBLingual tab SL PRN ×2 (13:35→14:20)
[2019-08-13] MEDS: furosemide 40mg/4ml inj IV SCH ×2 (13:39→20:00)
[2019-08-13] MEDS ORDERED: GABA-530 PO (13:59)
[2019-08-13] MEDS ORDERED: VIT1CAPS46 PO (14:36)
[2019-08-13] MEDS ORDERED: TETR-47 OP (14:38)
[2019-08-13 15:57] LABS: PHOSPHORUS 4.4 MG/DL (2.3-4.5)
[2019-08-13 16:01] LABS: CLARITY,URINE SLIGHTLY CLOUDY (Clear); COLOR,URINE YELLOW (Yellow); GLUCOSE, URINE NEGATIVE (Neg); KETONES,URINE NEGATIVE (Neg); LEUKOCYTE ESTERASE ,URINE NEGATIVE (Neg); NITRITES, URINE NEGATIVE (Neg); OCCULT BLOOD,URINE SMALL (Neg); PROTEIN,URINE NEGATIVE (Neg); UROBILINOGEN,URINE 0.2 E.U/dL (0.2-1.0)
[2019-08-13 16:05] LABS: UA COLLECTION TYPE STRAIGHT CATH
[2019-08-13 16:08] LABS: AMORPHOUS PHOSPHATES 1+; SQUAMOUS EPITHELIAL CELL,UR MANY /LPF (FEW)
[2019-08-13 16:09] LABS: BACTERIA,URINE 2+ /HPF (Neg); WBC,URINE 0-4 /HPF (0-4)
[2019-08-13] MEDS ORDERED: ipratropium/albuterol 3ml nebule NEB PRN (16:30)
[2019-08-13] MEDS ORDERED: methylPREDNISolone sod succ 125mg/2ml vial IV ONE (16:30)
[2019-08-13] MEDS ORDERED: diltiazem-NS 100mg/100ml 100 ML IV SCH (16:45)
[2019-08-13] MEDS ORDERED: tetrahydrozoline 0.05% 15ml ophthalmic drops EACHEYE PRN (17:40)
[2019-08-13] MEDS: CefTRIAXone/D5W-Rocephin 1gm 50 ML IV SCH (18:08)
--- NOTE | 2019-08-13 18:43 | NUR ---
Patient in room PCU 3016. I have received report from TEREZA Hernadez and had the opportunity to ask questions and assume patient care.
--- NOTE | 2019-08-13 18:43 | NUR ---
gave report to mac weber
[2019-08-13] MEDS: ipratropium/albuterol 3ml nebule NEB SCH ×2 (19:57→23:00)
[2019-08-13] MEDS ORDERED: enoxaparin 50mg/0.5ml (from 3ml vial) syringe SUBCUT SCH (20:00)
[2019-08-13] MEDS ORDERED: temazepam 15mg capsule PO PRN (21:00)
[2019-08-13] MEDS: lactobacillus rhamnosus 10,000 MMU CELLS/CAPSULE PO SCH (21:23)
[2019-08-13] MEDS: sotalol 80mg tablet PO SCH (21:23)
[2019-08-13] MEDS: apixaban 2.5mg tablet PO SCH (21:23)
[2019-08-13] MEDS: mirtazapine 15mg tablet PO SCH (21:24)
[2019-08-13] MEDS: methylPREDNISolone sod succ 125mg/2ml vial IV SCH (21:25)
[2019-08-14] VITALS (10 sets, daily range): BP systolic 97–128; BP diastolic 57–83
--- NOTE | 2019-08-14 01:11 | NUR ---
dairy technician Yasemin has brought to my attention some what appears to be ST elevation on patients tele rythym. We are doing STAT EKG and will monitor and follow up with Dr. Stanley. Patient HR is also jimping now to 180's. Will follow up w/ Jaden heather when ekg is complete.
[2019-08-14] MEDS ORDERED: digoxin 250mcg/ml 2ml ampule IV ONE (02:05)
[2019-08-14] MEDS: methylPREDNISolone sod succ 125mg/2ml vial IV SCH ×3 (02:25→15:07)
--- NOTE | 2019-08-14 02:32 | NUR ---
Spoke with Dr. Stanley and informed the patient that her HR was reaching up to 200's. It has been ranging from 120'3-200's. Just gave patient 250 MCG of Digoxin. HR is currently ranging from 90's- 130's. Will continue to monitor this closely. BP is stable at 113/65. Patient is A+O X 4, not anxious and resting.
--- NOTE | 2019-08-14 02:35 | NUR ---
Patient had a low BP during the 1900 hr. 500 mL bolus given per MD Nepo order.
--- NOTE | 2019-08-14 02:36 | NUR ---
Patient had low BP before giving DIGOXIN and was tachyarrhythmic. Kittrick prescribed 250 mL bolus. Then Digoxin was administered.
[2019-08-14 05:27] LABS: BASOPHILS % (AUTO) 0.2 % (0-1); EOSINOPHILS % (AUTO) 0 % (0-6); HEMATOCRIT 37.1 % (35.0-45.0); HEMOGLOBIN 12.3 g/dl (12.0-16.0); LYMPHOCYTES # (AUTO) 0.6 X10'3 (1.1-4.8); LYMPHOCYTES % (AUTO) 7.5 % (21-51); MEAN CORPUSCULAR HEMOGLOBIN 28.4 PG (27.0-31.0); MEAN PLATELET VOLUME 9.2 FL (7.4-10.4); MONOCYTES # (AUTO) 0.6 X10'3 (0-0.9); MONOCYTES % (AUTO) 6.7 % (2-12); NEUTROPHILS # (AUTO) 7.3 X10'3 (1.8-7.7); NEUTROPHILS % (AUTO) 85.6 % (42-75); PLATELET COUNT 189 X10'3 (140-440); RED BLOOD COUNT 4.31 X10'6 (4.20-5.60); RED CELL DISTRIBUTION WIDTH 18.7 % (11.5-14.5); WHITE BLOOD COUNT 8.5 X10'3 (4.5-11.0)
[2019-08-14 05:49] LABS: ALANINE AMINOTRANSFERASE 19 U/L (12-78); ALBUMIN 2.2 G/DL (3.4-5.0); ALBUMIN/GLOBULIN RATIO 0.4 (1.1-1.5); ALKALINE PHOSPHATASE 96 IU/L (46-116); ANION GAP 7 (8-16); ASPARTATE AMINO TRANSFERASE 20 U/L (10-37); BILIRUBIN,TOTAL 0.6 MG/DL (0.1-1.0); BLOOD UREA NITROGEN 24 MG/DL (7-18); BUN/CREATININE RATIO 25.8 (6.6-38.0); CALCIUM 8.9 MG/DL (8.5-10.1); CHLORIDE 105 MMOL/L (99-107); CHOL/HDL RATIO 3.5 (0.00-4.99); CHOLESTEROL 167 MG/DL (0-200); CREATININE 0.93 MG/DL (0.40-0.90); GLUCOSE 177 MG/DL (70-104); HDL CHOLESTEROL 48 MG/DL (35-60); LDL CHOLESTEROL 113 MG/DL (50-100); POTASSIUM 4.6 MMOL/L (3.5-5.1); SODIUM 142 MMOL/L (135-145); TOTAL CARBON DIOXIDE 30.3 MMOL/L (24-32); TOTAL PROTEIN 8.1 G/DL (6.4-8.2); TRIGLYCERIDES 68 MG/DL (20-135); eGFR 57 ML/MIN
--- NOTE | 2019-08-14 06:48 | NUR ---
Problems reprioritized. Patient report given, questions answered & plan of care reviewed with TEREZA Mobley.
--- NOTE | 2019-08-14 06:48 | NUR ---
Patient in room PCU 3016. I have received report from Monie STARKS and had the opportunity to ask questions and assume patient care. Patient awake in bed. No complaints at this time. Will continue to monitor.
[2019-08-14] MEDS: ipratropium/albuterol 3ml nebule NEB SCH ×5 (07:02→23:00)
[2019-08-14] MEDS: K and/or MAG REPLACEMENT MC SCH (08:00)
[2019-08-14] MEDS ORDERED: losartan 50mg tablet PO SCH (08:00)
[2019-08-14] MEDS ORDERED: amLODIPine 5mg tablet PO SCH (08:00)
[2019-08-14] MEDS: aspirin 81mg tablet.DR PO SCH (09:23)
[2019-08-14] MEDS: sotalol 80mg tablet PO SCH ×2 (09:23→20:51)
[2019-08-14] MEDS: pantoprazole 40mg Tablet.DR PO SCH (09:23)
[2019-08-14] MEDS: lactobacillus rhamnosus 10,000 MMU CELLS/CAPSULE PO SCH ×2 (09:24→20:51)
[2019-08-14] MEDS: CefTRIAXone/D5W-Rocephin 1gm 50 ML IV SCH (09:24)
[2019-08-14] MEDS: levoTHYROXINE 75mcg tablet PO SCH (09:24)
[2019-08-14] MEDS: furosemide 40mg/4ml inj IV SCH (09:24)
[2019-08-14] MEDS: apixaban 2.5mg tablet PO SCH ×2 (09:24→20:51)
--- NOTE | 2019-08-14 18:00 | NUR ---
Patient in room PCU 3016. I have received report from Leandra STARKS and had the opportunity to ask questions and assume patient care.
--- NOTE | 2019-08-14 18:43 | NUR ---
Problems reprioritized. Patient report given, questions answered & plan of care reviewed with Mary STARKS. Patient stable at transfer of care.
[2019-08-14] MEDS ORDERED: furosemide 20 MG/2 ML vial IV SCH (20:00)
[2019-08-14] MEDS: mirtazapine 15mg tablet PO SCH (20:52)
[2019-08-15 02:00] VITALS: BP 106/55
[2019-08-15 05:48] LABS: BASOPHILS % (AUTO) 0.2 % (0-1); EOSINOPHILS % (AUTO) 0 % (0-6); HEMATOCRIT 36.1 % (35.0-45.0); HEMOGLOBIN 11.9 g/dl (12.0-16.0); LYMPHOCYTES # (AUTO) 0.7 X10'3 (1.1-4.8); LYMPHOCYTES % (AUTO) 4.6 % (21-51); MEAN CORPUSCULAR HEMOGLOBIN 27.8 PG (27.0-31.0); MEAN CORPUSCULAR HGB CONC 32.8 g/dL (33.0-36.5); MEAN CORPUSCULAR VOLUME 84.9 FL (78-98); MEAN PLATELET VOLUME 8.8 FL (7.4-10.4); MONOCYTES # (AUTO) 0.7 X10'3 (0-0.9); MONOCYTES % (AUTO) 4.8 % (2-12); NEUTROPHILS # (AUTO) 13.9 X10'3 (1.8-7.7); NEUTROPHILS % (AUTO) 90.4 % (42-75); PLATELET COUNT 226 X10'3 (140-440); RED BLOOD COUNT 4.26 X10'6 (4.20-5.60); RED CELL DISTRIBUTION WIDTH 18.5 % (11.5-14.5); WHITE BLOOD COUNT 15.4 X10'3 (4.5-11.0)
[2019-08-15 06:00] VITALS: BP 129/79
[2019-08-15 06:14] LABS: ALANINE AMINOTRANSFERASE 17 U/L (12-78); ALBUMIN 2.2 G/DL (3.4-5.0); ALBUMIN/GLOBULIN RATIO 0.4 (1.1-1.5); ALKALINE PHOSPHATASE 85 IU/L (46-116); ANION GAP 7 (8-16); ASPARTATE AMINO TRANSFERASE 16 U/L (10-37); BILIRUBIN,TOTAL 0.2 MG/DL (0.1-1.0); BLOOD UREA NITROGEN 34 MG/DL (7-18); BUN/CREATININE RATIO 32.1 (6.6-38.0); CALCIUM 9.5 MG/DL (8.5-10.1); CHLORIDE 105 MMOL/L (99-107); CREATININE 1.06 MG/DL (0.40-0.90); GLUCOSE 144 MG/DL (70-104); PHOSPHORUS 4.9 MG/DL (2.3-4.5); POTASSIUM 3.9 MMOL/L (3.5-5.1); SODIUM 144 MMOL/L (135-145); TOTAL CARBON DIOXIDE 31.8 MMOL/L (24-32); TOTAL PROTEIN 7.9 G/DL (6.4-8.2); eGFR 49 ML/MIN
--- NOTE | 2019-08-15 06:36 | NUR ---
Problems reprioritized. Patient report given, questions answered & plan of care reviewed with Leandra STARKS.
[2019-08-15] MEDS: ipratropium/albuterol 3ml nebule NEB SCH ×3 (06:47→14:53)
--- NOTE | 2019-08-15 06:50 | NUR ---
Patient in room PCU 3016. I have received report from Mary STARKS and had the opportunity to ask questions and assume patient care. Patient asleep in bed and resting comfortably. All immediate needs met. Will continue to monitor.
[2019-08-15] MEDS: K and/or MAG REPLACEMENT MC SCH (08:00)
[2019-08-15] MEDS ORDERED: predniSONE 20 mg tablet PO SCH (08:00)
[2019-08-15] MEDS: apixaban 2.5mg tablet PO SCH (08:46)
[2019-08-15] MEDS: CefTRIAXone/D5W-Rocephin 1gm 50 ML IV SCH (08:46)
[2019-08-15] MEDS: aspirin 81mg tablet.DR PO SCH (08:46)
[2019-08-15] MEDS: lactobacillus rhamnosus 10,000 MMU CELLS/CAPSULE PO SCH (08:46)
[2019-08-15] MEDS: sotalol 80mg tablet PO SCH (08:47)
[2019-08-15] MEDS: levoTHYROXINE 75mcg tablet PO SCH (08:47)
[2019-08-15] MEDS: pantoprazole 40mg Tablet.DR PO SCH (09:04)
[2019-08-15 11:00] VITALS: BP 106/70
[2019-08-15] MEDS ORDERED: CEFD300C3 PO (13:59)
[2019-08-15] MEDS ORDERED: METH1TAB32 PO (13:59)
--- NOTE | 2019-08-15 14:17 | NUR ---
Patient stable for discharge per MD orders. All discharge instructions reviewed with patient and all questions answered. Patient to follow up with PCP, Dr. Doyle in 1 week. New prescriptions called into [facility] on [address]. PIV discontinued - cannula. Bedside telemetry monitoring discontinued. Patient belongings packed up and sent with patient in private vehicle to home. Patient wheeled to lobby by PCT, accompanied by family.
[2019-08-15 15:00] VITALS: BP 138/78
--- NOTE | 2019-08-15 18:13 | NUR ---
[place] documentation: I have reviewed and agree with all interventions, assessments performed and documented by TEREZA Sharif. [place] Medication Administration: For this medication-pass time frame, all medication were reviewed, dispensed, administered and documented per hospital policy by TEREZA Sharif.
[2019-08-15] MEDS ORDERED: furosemide 20MG tablet PO SCH (20:00)
== END 2019-08-15 16:34 | disposition home or self-care (01) | DRG 189 ==
LOC: ER 09:41 → ED HOLD 11:27 → PCU 3S 14:41 → CMPBEDREQ 08-14 17:58
PROVIDERS: ADMIT Family Medicine; ATTEND Family Medicine
DX: J96.21 Acute and chronic respiratory failure with hypoxia (principal); G93.41 Metabolic encephalopathy; N39.0 Urinary tract infection, site not specified; J44.1 Chronic obstructive pulmonary disease with (acute) exacerbation; E44.0 Moderate protein-calorie malnutrition; I11.0 Hypertensive heart disease with heart failure; E03.9 Hypothyroidism, unspecified; E78.00 Pure hypercholesterolemia, unspecified; H35.30 Unspecified macular degeneration; Z66 Do not resuscitate; M35.00 Sjogren syndrome, unspecified; I50.9 Heart failure, unspecified; F32.9 Major depressive disorder, single episode, unspecified; G47.00 Insomnia, unspecified; R00.0 Tachycardia, unspecified; F41.9 Anxiety disorder, unspecified; I95.9 Hypotension, unspecified; I25.10 Atherosclerotic heart disease of native coronary artery without angina pectoris; I27.20 Pulmonary hypertension, unspecified; I35.0 Nonrheumatic aortic (valve) stenosis; I48.0 Paroxysmal atrial fibrillation; K21.9 Gastro-esophageal reflux disease without esophagitis; M06.9 Rheumatoid arthritis, unspecified; M19.90 Unspecified osteoarthritis, unspecified site; Z79.01 Long term (current) use of anticoagulants; Z90.49 Acquired absence of other specified parts of digestive tract; Z79.899 Other long term (current) drug therapy; Z68.21 Body mass index [BMI] 21.0-21.9, adult; Z88.0 Allergy status to penicillin; Z88.2 Allergy status to sulfonamides; Z88.8 Allergy status to other drugs, medicaments and biological substances
CPT/HCPCS: 36415; 71045; 80053; 80061; 80162; 81001; 83735; 83880; 84100; 84439; 84443; 84484; 85025; 85610; 85730; 87081; 92508; 92616; 93005; 93306; 94640; 94760; 96372; 96374; 96375; 99291; A6258; G0378; J0696; J1160; J1644; J1650; J1940; J2001; J2270; J2405; J2930; J3490; J7512; Q9967

== ENCOUNTER 2019-08-26 11:21 | Emergency (ER) | payer MEDICARE ==
[~2019-08-26] VITALS: Ht 167.6 cm; Wt 52.7 kg
[~2019-08-26 11:21] MED LIST changes: -ALBU8.5H8 INH; +GABA-530 PO; -LIDO700A32 TP; +METH1TAB32 PO; +TETR-47 OP; -heparin, porcine-25,000 units/D5-250ml premix IV ONE; -nitroGLYCERIN 0.4mg SUBLingual tab SL ONE
[2019-08-26 12:01] LABS: EOSINOPHILS # (AUTO) 0.1 X10'3 (0-0.9); HEMOGLOBIN 12.5 g/dl (12.0-16.0); NEUTROPHILS # (AUTO) 7.7 X10'3 (1.8-7.7)
[2019-08-26 12:03] LABS: BASOPHILS % (AUTO) 0 % (0-1); EOSINOPHILS % (AUTO) 0.9 % (0-6); HEMATOCRIT 38.7 % (35.0-45.0); LYMPHOCYTES # (AUTO) 1.1 X10'3 (1.1-4.8); MEAN CORPUSCULAR HGB CONC 32.3 g/dL (33.0-36.5); MEAN CORPUSCULAR VOLUME 86.6 FL (78-98); MEAN PLATELET VOLUME 8.6 FL (7.4-10.4); MONOCYTES # (AUTO) 0.9 X10'3 (0-0.9); MONOCYTES % (AUTO) 8.9 % (2-12); NEUTROPHILS % (AUTO) 79.2 % (42-75); PLATELET COUNT 244 X10'3 (140-440); RED BLOOD COUNT 4.46 X10'6 (4.20-5.60); RED CELL DISTRIBUTION WIDTH 18.3 % (11.5-14.5); WHITE BLOOD COUNT 9.7 X10'3 (4.5-11.0)
[2019-08-26 12:17] LABS: ALANINE AMINOTRANSFERASE 20 U/L (12-78); ALBUMIN 2.4 G/DL (3.4-5.0); ALBUMIN/GLOBULIN RATIO 0.4 (1.1-1.5); ALKALINE PHOSPHATASE 99 IU/L (46-116); ANION GAP 9 (8-16); ASPARTATE AMINO TRANSFERASE 22 U/L (10-37); BILIRUBIN,TOTAL 0.4 MG/DL (0.1-1.0); BLOOD UREA NITROGEN 12 MG/DL (7-18); BUN/CREATININE RATIO 17.1 (6.6-38.0); CALCIUM 8.6 MG/DL (8.5-10.1); CHLORIDE 105 MMOL/L (99-107); GLUCOSE 162 MG/DL (70-104); SODIUM 143 MMOL/L (135-145); eGFR 79 ML/MIN
[2019-08-26 12:18] LABS: POTASSIUM 4.4 MMOL/L (3.5-5.1)
[2019-08-26 12:26] LABS: TOTAL CELLS COUNTED 100
[2019-08-26 12:27] LABS: ANISOCYTOSIS 2+; PLATELET ESTIMATE NORMAL; POLYCHROMASIA FEW
[2019-08-26 12:28] LABS: TOXIC VACUOLATION FEW
[2019-08-26] MEDS ORDERED: metoprolol tartrate 1mg/ml inj IV ONE ×2 (12:30→13:35)
--- NOTE | 2019-08-26 12:57 | NUR ---
POST LOPRESSOR HR 78 AFIB.
--- NOTE | 2019-08-26 13:29 | NUR ---
relieving RN for break, pt amb with steady gait around ER with walker on room air, pt c/o SOB, pulse ox was 96% on room air, RR 26, talking 5-6 word sentences, no chest pain/discomfort, Dr Vuong aware
--- NOTE | 2019-08-26 13:49 | NUR ---
POST 5MG LOPRESSOR, BP 136/79, HR 80 AFIB. 02 SAT 96 ON 22 L/MIN NC RR24
[2019-08-26 14:28] VITALS: BP 140/92
== END 2019-08-26 14:33 | disposition home or self-care (01) ==
LOC: ER 11:21
DX: I48.91 Unspecified atrial fibrillation (principal); J44.9 Chronic obstructive pulmonary disease, unspecified; E78.00 Pure hypercholesterolemia, unspecified; M06.9 Rheumatoid arthritis, unspecified; F41.9 Anxiety disorder, unspecified; Z90.49 Acquired absence of other specified parts of digestive tract; Z88.0 Allergy status to penicillin; Z88.2 Allergy status to sulfonamides; Z88.8 Allergy status to other drugs, medicaments and biological substances; Z79.899 Other long term (current) drug therapy
CPT/HCPCS: 36415; 71045; 80053; 83605; 85025; 87040; 93005; 96374; 96376; 99284; J3490